=== PATIENT | male | born 1965 | race Caucasian/White ===

== ENCOUNTER 2018-12-06 15:15 | Inpatient (IN) | payer MEDICARE, MEDICAID ==
[~2018-12-06] VITALS: Ht 172.7 cm; Wt 63.5 kg
[~2018-12-06 15:15] MED LIST: CLON1TAB12 PO; OLAN10TA3 PO; TRAZ-251 PO; ZYDS20 PO
[2018-12-06] MEDS ORDERED: OLANZAPINE 5MG TABLET ODT PO ONE (16:45)
[2018-12-06 17:01] LABS: BASOPHILS % 0.4 % (0.0-2.0); EOSINOPHILS % 0.9 % (0.0-5.0); HEMATOCRIT. 37.6 % (42.0-52.0); HEMOGLOBIN. 12.8 g/dL (14.0-18.0); LYMPHOCYTES % 13.5 % (20.0-50.0); MEAN CORPUSCULAR VOLUME 91.2 fL (80.0-94.0); MEAN PLATELET VOLUME 7.4 fl (7.4-10.4); MONOCYTES % 6.9 % (2.0-8.0); NEUTROPHILS % 78.3 % (40.0-76.0); PLATELET 268 x1000/uL (130-400); RED BLOOD CELL COUNT 4.12 mill/uL (4.7-6.1); RED CELL DISTRIBUTION WIDTH 15.9 % (11.6-14.6)
[2018-12-06 17:06] LABS: CHLORIDE 107 mEq/L (98-107)
[2018-12-06 17:09] LABS: ETHANOL BLOOD < 10 mg/dL
[2018-12-06 18:37] LABS: *AMPHETAMINES SCREEN URINE NEGATIVE (NEGATIVE); *BARBITURATES SCREEN URINE NEGATIVE (NEGATIVE)
[2018-12-06 18:38] LABS: *BENZODIAZEPINES SCREEN URINE NEGATIVE (NEGATIVE); *COCAINE SCREEN URINE NEGATIVE (NEGATIVE); CANNABINOID URINE SCREEN NEGATIVE (NEGATIVE); METHADONE URINE SCREEN NEGATIVE (NEGATIVE); OPIATES URINE SCREEN NEGATIVE (NEGATIVE); PHENCYCLIDINE URINE SCREEN NEGATIVE (NEGATIVE)
[2018-12-06] MEDS ORDERED: LORAZEPAM 2MG/ML CPJ IM ONE (21:30)
[2018-12-07] MEDS ORDERED: HYDROCODONE/ACETAMINOPHEN 5/325MG TABLET PO NR (08:45)
[2018-12-07] MEDS: OLANZAPINE 5MG TABLET ODT PO NR ×2 (08:49→08:59)
[2018-12-07] MEDS ORDERED: LORAZEPAM 2MG/ML CPJ IM STA (15:26)
[2018-12-07] MEDS ORDERED: OLANZAPINE 10 MG/VIAL IM STA (15:26)
[2018-12-07] MEDS ORDERED: TRANEXAMIC ACID 1,000 MG/10 ML TP ONE (16:45)
[2018-12-07] MEDS ORDERED: KETAMINE HCL 50 MG/ML 10ML ONE (17:02)
[2018-12-07] MEDS ORDERED: LIDOCAINE HCL 1% 20ML VIAL (Pyxis) INJ ONE (17:08)
[2018-12-07] MEDS ORDERED: PROPOFOL 10MG/ML 100ML 100 ML IV ONE ×2 (17:17→18:00)
[2018-12-07] MEDS ORDERED: SUCCINYLCHOLINE CHLORIDE 200MG/10ML IV ONE (17:30)
[2018-12-07] MEDS ORDERED: KETAMINE HCL 50 MG/ML 10ML IV ONE (17:30)
[2018-12-07 17:41] LABS: BG BASE EXCESS 1.2 mmol/L (-2.0-2.0); BG CARBOXYHEMOGLOBIN 0.4 % (0.5-1.5); BG DEOXYHEMOGLOBIN 0.3 % (0.0-5.0); BG FRACTION INSPIRED OXYGEN 100; BG HCO3 ACT 26.7 mmol/L (22.0-26.0); BG METHEMOGLOBIN 0.3 % (0.0-1.5); BG OXYGEN SATURATION 99.7 % (92.0-98.5); BG PCO2 45.3 mmHg (35.0-45.0); BG PH 7.388 (7.350-7.450); BG PO2 583.1 mmHg (75.0-100.0); BG SAMPLE SITE RIGHT BRACHIAL; BG TIDAL VOLUME(mL) 500 mL; BG VENT MODE VENT - A/C; BG VENT RATE 12 set
[2018-12-07 19:47] LABS: HEMATOCRIT. 36.2 % (42.0-52.0); HEMOGLOBIN. 12.2 g/dL (14.0-18.0); MEAN CORPUSCULAR VOLUME 91.6 fL (80.0-94.0); MEAN PLATELET VOLUME 7.4 fl (7.4-10.4); PLATELET 255 x1000/uL (130-400); RED BLOOD CELL COUNT 3.95 mill/uL (4.7-6.1); RED CELL DISTRIBUTION WIDTH 16.2 % (11.6-14.6)
[2018-12-07 19:51] LABS: CHLORIDE 110 mEq/L (98-107)
[2018-12-07 19:56] LABS: INR 1.1; PARTIAL THROMBOPLASTIN TIME 28.2 sec (23.4-31.0); PROTHROMBIN TIME 10.9 sec (9.6-11.0)
[2018-12-07 20:01] LABS: PLATELET ESTIMATE NORMAL
[2018-12-08] VITALS (114 sets, daily range): BP systolic 79–204; BP diastolic 45–129
[2018-12-08] MEDS ORDERED: ONDANSETRON HCL 4MG/2ML INJ IV PRN (00:30)
[2018-12-08] MEDS ORDERED: LORAZEPAM 2MG/ML CPJ IV PRN (00:30)
[2018-12-08 00:43] LABS: BG BASE EXCESS -0.7 mmol/L (-2.0-2.0); BG CARBOXYHEMOGLOBIN 0.3 % (0.5-1.5); BG DEOXYHEMOGLOBIN 0.7 % (0.0-5.0); BG FRACTION INSPIRED OXYGEN 50; BG HCO3 ACT 25.6 mmol/L (22.0-26.0); BG METHEMOGLOBIN 0.3 % (0.0-1.5); BG OXYGEN SATURATION 99.3 % (92.0-98.5); BG OXYHEMOGLOBIN 98.7 % (94.0-97.0); BG PCO2 48.5 mmHg (35.0-45.0); BG PO2 220.4 mmHg (75.0-100.0); BG SAMPLE SITE RIGHT BRACHIAL; BG TIDAL VOLUME(mL) 500 mL; BG TOTAL HEMOGLOBIN 13.1 g/dL (12.0-18.0); BG VENT MODE VENT - A/C; BG VENT RATE 12 set
[2018-12-08] MEDS: DEXT 5%/0.45% NACL 1000ML 1,000 ML IV SCH ×2 (00:48→14:27)
[2018-12-08] MEDS ORDERED: PROPOFOL 10MG/ML 100ML 100 ML IV PRN (01:15)
[2018-12-08] MEDS ORDERED: IPRATROPIUM/ALBUTEROL 0.5-3(2.5)MG/3ML NEB HHN PRN (01:15)
[2018-12-08] MEDS: IPRATROPIUM/ALBUTEROL 0.5-3(2.5)MG/3ML NEB HHN SCH ×5 (02:00→19:46)
[2018-12-08] MEDS: NOREPINEPHRINE 16 MG in DEXT 5% WATER 234 ML IV PRN ×2 (06:10→20:46)
[2018-12-08 07:55] LABS: BG BASE EXCESS -0.4 mmol/L (-2.0-2.0); BG DEOXYHEMOGLOBIN 0.3 % (0.0-5.0); BG FRACTION INSPIRED OXYGEN 50; BG HCO3 ACT 24.8 mmol/L (22.0-26.0); BG METHEMOGLOBIN 0.3 % (0.0-1.5); BG OXYGEN SATURATION 99.7 % (92.0-98.5); BG OXYHEMOGLOBIN 98.4 % (94.0-97.0); BG PCO2 42.5 mmHg (35.0-45.0); BG PH 7.384 (7.350-7.450); BG PO2 260.3 mmHg (75.0-100.0); BG SAMPLE SITE RIGHT BRACHIAL; BG TIDAL VOLUME(mL) 500 mL; BG TOTAL HEMOGLOBIN 14.6 g/dL (12.0-18.0); BG VENT MODE VENT - A/C; BG VENT RATE 14 set
[2018-12-08] MEDS: FENTANYL CITRATE/PF 500 MCG in SODIUM CHLORIDE 0.9% 40 ML IV PRN ×3 (08:44→21:23)
[2018-12-08] MEDS ORDERED: SUCCINYLCHOLINE CHLORIDE 200MG/10ML IV ONE (08:45)
[2018-12-08] MEDS: MIDAZOLAM HCL 50 MG in DEXTROSE 5% WATER 40 ML IV PRN ×3 (08:45→21:00)
[2018-12-08] MEDS ORDERED: ETOMIDATE 2MG/ML 10ML VIAL IV ONE (08:45)
[2018-12-08] MEDS ORDERED: LORAZEPAM 2MG/ML CPJ IV NR (09:00)
[2018-12-08] MEDS ORDERED: LEVETIRACETAM 500 MG in SODIUM CHLORIDE 0.9% 100 ML IV NR (10:00)
[2018-12-08 10:13] LABS: HEMATOCRIT. 34.9 % (42.0-52.0); HEMOGLOBIN. 11.8 g/dL (14.0-18.0); MEAN CORPUSCULAR HEMOGLOBIN 31.2 pg (28.0-32.0); MEAN CORPUSCULAR VOLUME 92.2 fL (80.0-94.0); MEAN PLATELET VOLUME 7.5 fl (7.4-10.4); PLATELET 230 x1000/uL (130-400); RED BLOOD CELL COUNT 3.78 mill/uL (4.7-6.1); RED CELL DISTRIBUTION WIDTH 16.1 % (11.6-14.6)
[2018-12-08 10:25] LABS: CHLORIDE 109 mEq/L (98-107)
[2018-12-08 10:31] LABS: PHOSPHORUS 2.6 mg/dL (2.5-4.9)
[2018-12-08 11:30] LABS: PLATELET ESTIMATE NORMAL
[2018-12-08] MEDS: PANTOPRAZOLE SODIUM 40 MG/VIAL IV SCH (12:00)
[2018-12-08] MEDS: CLONAZEPAM 0.5MG TABLET PO SCH ×3 (12:15→19:26)
[2018-12-08] MEDS ORDERED: LIDOCAINE HCL 1% 20ML VIAL (Pyxis) INJ ONE (12:55)
[2018-12-08] MEDS ORDERED: POTASSIUM CHLORIDE INJ 40 MEQ in DEXT 5% WATER 250 ML IV NR (13:00)
[2018-12-08] MEDS ORDERED: HYDROMORPHONE HCL/PF 2MG/ML CPJ IV PRN (16:45)
[2018-12-08] MEDS: ACETAMINOPHEN 325MG TABLET PO PRN (19:27)
[2018-12-08] MEDS: LORAZEPAM 2MG/ML CPJ IV PRN (19:42)
[2018-12-08] MEDS: PIPERACILLIN/TAZ 3.375G PREMIX 50 ML IV SCH (20:47)
[2018-12-08] MEDS: OLANZAPINE 10MG TABLET PO SCH (20:48)
[2018-12-08 21:31] LABS: CLARITY URINE CLEAR (CLEAR); COLOR URINE YELLOW (YELLOW); KETONES URINE NEGATIVE (NEGATIVE); LEUKOCYTE ESTERASE URINE TRACE (NEGATIVE); NITRITE URINE NEGATIVE (NEGATIVE); OCCULT BLOOD URINE 3+ (NEGATIVE); PROTEIN URINE NEGATIVE (NEGATIVE)
[2018-12-09] VITALS (94 sets, daily range): BP systolic 84–144; BP diastolic 38–94
[2018-12-09] MEDS: DEXT 5%/0.45% NACL 1000ML 1,000 ML IV SCH ×2 (01:31→14:18)
[2018-12-09] MEDS: PIPERACILLIN/TAZ 3.375G PREMIX 50 ML IV SCH ×4 (01:48→19:51)
[2018-12-09] MEDS: IPRATROPIUM/ALBUTEROL 0.5-3(2.5)MG/3ML NEB HHN SCH ×4 (01:54→20:39)
[2018-12-09] MEDS: MIDAZOLAM HCL 50 MG in DEXTROSE 5% WATER 40 ML IV PRN ×4 (02:03→16:39)
[2018-12-09] MEDS: FENTANYL CITRATE/PF 500 MCG in SODIUM CHLORIDE 0.9% 40 ML IV PRN ×6 (02:25→22:49)
[2018-12-09 05:31] LABS: HEMATOCRIT. 35.9 % (42.0-52.0); HEMOGLOBIN. 12.3 g/dL (14.0-18.0); MEAN CORPUSCULAR HEMOGLOBIN 31.8 pg (28.0-32.0); MEAN PLATELET VOLUME 7.9 fl (7.4-10.4); PLATELET 221 x1000/uL (130-400); RED BLOOD CELL COUNT 3.87 mill/uL (4.7-6.1); RED CELL DISTRIBUTION WIDTH 16.2 % (11.6-14.6)
[2018-12-09 05:36] LABS: CHLORIDE 105 mEq/L (98-107)
[2018-12-09 07:11] LABS: PLATELET ESTIMATE NORMAL
[2018-12-09] MEDS: LORAZEPAM 2MG/ML CPJ IV PRN ×2 (07:45→12:02)
[2018-12-09 07:57] LABS: BG BASE EXCESS 2.9 mmol/L (-2.0-2.0); BG CARBOXYHEMOGLOBIN 0.6 % (0.5-1.5); BG DEOXYHEMOGLOBIN 2.9 % (0.0-5.0); BG FRACTION INSPIRED OXYGEN 35; BG HCO3 ACT 28.5 mmol/L (22.0-26.0); BG METHEMOGLOBIN 0.3 % (0.0-1.5); BG OXYGEN SATURATION 97.1 % (92.0-98.5); BG OXYHEMOGLOBIN 96.2 % (94.0-97.0); BG PCO2 48.1 mmHg (35.0-45.0); BG PH 7.391 (7.350-7.450); BG PO2 96.3 mmHg (75.0-100.0); BG SAMPLE SITE RIGHT RADIAL; BG TIDAL VOLUME(mL) 500 mL; BG TOTAL HEMOGLOBIN 11.7 g/dL (12.0-18.0); BG VENT MODE VENT - A/C; BG VENT RATE 14 set
[2018-12-09] MEDS: CLONAZEPAM 0.5MG TABLET PO SCH (08:42)
[2018-12-09] MEDS: PANTOPRAZOLE SODIUM 40 MG/VIAL IV SCH (08:42)
[2018-12-09] MEDS: HALOPERIDOL 5MG TABLET PO PRN (13:30)
[2018-12-09] MEDS: ACETAMINOPHEN 325MG TABLET PO PRN (16:53)
[2018-12-09] MEDS: CLONAZEPAM 1MG TABLET PO SCH ×2 (18:04→23:00)
[2018-12-09] MEDS: PROPOFOL 10MG/ML 100ML 100 ML IV PRN (19:17)
[2018-12-09] MEDS ORDERED: GENTAMICIN 120MG PREMIX 100 ML IV NR (20:30)
[2018-12-09] MEDS ORDERED: GENTAMICIN SULFATE 140 MG in SODIUM CHLORIDE 0.9% 100 ML IV SCH (20:30)
[2018-12-09] MEDS: OLANZAPINE 10MG TABLET PO SCH (20:33)
[2018-12-10] VITALS (98 sets, daily range): BP systolic 84–130; BP diastolic 46–78
[2018-12-10] MEDS: PROPOFOL 10MG/ML 100ML 100 ML IV PRN ×4 (00:28→23:40)
[2018-12-10] MEDS: PIPERACILLIN/TAZ 3.375G PREMIX 50 ML IV SCH ×4 (01:24→19:28)
[2018-12-10] MEDS: IPRATROPIUM/ALBUTEROL 0.5-3(2.5)MG/3ML NEB HHN SCH ×4 (02:31→20:12)
[2018-12-10] MEDS: FENTANYL CITRATE/PF 500 MCG in SODIUM CHLORIDE 0.9% 40 ML IV PRN ×3 (03:53→14:55)
[2018-12-10] MEDS: DEXT 5%/0.45% NACL 1000ML 1,000 ML IV SCH ×2 (04:05→17:43)
[2018-12-10] MEDS: CLONAZEPAM 1MG TABLET PO SCH ×4 (05:08→23:03)
[2018-12-10 05:56] LABS: HEMATOCRIT. 31.1 % (42.0-52.0); HEMOGLOBIN. 10.5 g/dL (14.0-18.0); MEAN CORPUSCULAR VOLUME 91.9 fL (80.0-94.0); MEAN PLATELET VOLUME 8.2 fl (7.4-10.4); PLATELET 192 x1000/uL (130-400); RED BLOOD CELL COUNT 3.38 mill/uL (4.7-6.1)
[2018-12-10 06:01] LABS: CHLORIDE 103 mEq/L (98-107)
[2018-12-10 07:58] LABS: BG BASE EXCESS 1.5 mmol/L (-2.0-2.0); BG CARBOXYHEMOGLOBIN 0.2 % (0.5-1.5); BG DEOXYHEMOGLOBIN 2.3 % (0.0-5.0); BG FRACTION INSPIRED OXYGEN 35; BG HCO3 ACT 26.3 mmol/L (22.0-26.0); BG METHEMOGLOBIN 0.1 % (0.0-1.5); BG OXYGEN SATURATION 97.7 % (92.0-98.5); BG OXYHEMOGLOBIN 97.4 % (94.0-97.0); BG PCO2 42.6 mmHg (35.0-45.0); BG PH 7.409 (7.350-7.450); BG PO2 103.7 mmHg (75.0-100.0); BG SAMPLE SITE LEFT BRACHIAL; BG TIDAL VOLUME(mL) 500 mL; BG VENT MODE VENT - A/C; BG VENT RATE 14 set
[2018-12-10] MEDS: GENTAMICIN 120MG PREMIX 100 ML IV SCH ×2 (08:23→20:00)
[2018-12-10] MEDS: PANTOPRAZOLE SODIUM 40 MG/VIAL IV SCH (08:23)
[2018-12-10 09:07] LABS: PHOSPHORUS 2.5 mg/dL (2.5-4.9)
[2018-12-10] MEDS ORDERED: POTASSIUM CHLORIDE INJ 40 MEQ in DEXT 5% WATER 250 ML IV NR (09:30)
[2018-12-10 10:05] LABS: PLATELET ESTIMATE NORMAL
[2018-12-10] MEDS: HALOPERIDOL 5MG TABLET PO PRN (15:12)
[2018-12-10] MEDS: ACETAMINOPHEN 325MG TABLET PO PRN (15:23)
[2018-12-10] MEDS: OLANZAPINE 10MG TABLET PO SCH (20:05)
[2018-12-10] MEDS: FENTANYL CITRATE/PF 1,000 MCG in SODIUM CHLORIDE 0.9% 80 ML IV PRN ×2 (20:27→20:30)
[2018-12-11] VITALS (90 sets, daily range): BP systolic 90–144; BP diastolic 46–89
[2018-12-11] MEDS: PIPERACILLIN/TAZ 3.375G PREMIX 50 ML IV SCH ×2 (01:00→08:40)
[2018-12-11] MEDS: IPRATROPIUM/ALBUTEROL 0.5-3(2.5)MG/3ML NEB HHN SCH ×4 (01:57→20:42)
[2018-12-11] MEDS: CLONAZEPAM 1MG TABLET PO SCH ×3 (05:07→17:37)
[2018-12-11] MEDS: PROPOFOL 10MG/ML 100ML 100 ML IV PRN ×3 (05:07→17:19)
[2018-12-11] MEDS: DEXT 5%/0.45% NACL 1000ML 1,000 ML IV SCH ×2 (06:41→20:51)
[2018-12-11 07:27] LABS: BASOPHILS % 0.3 % (0.0-2.0); EOSINOPHILS % 3.2 % (0.0-5.0); HEMATOCRIT. 26.9 % (42.0-52.0); HEMOGLOBIN. 9.2 g/dL (14.0-18.0); LYMPHOCYTES % 7.7 % (20.0-50.0); MEAN CORPUSCULAR HEMOGLOBIN 31.4 pg (28.0-32.0); MEAN CORPUSCULAR VOLUME 92.1 fL (80.0-94.0); MEAN PLATELET VOLUME 7.9 fl (7.4-10.4); MONOCYTES % 5.6 % (2.0-8.0); NEUTROPHILS % 83.2 % (40.0-76.0); PLATELET 194 x1000/uL (130-400); RED BLOOD CELL COUNT 2.92 mill/uL (4.7-6.1); RED CELL DISTRIBUTION WIDTH 16.1 % (11.6-14.6)
[2018-12-11 07:38] LABS: CHLORIDE 106 mEq/L (98-107)
[2018-12-11 07:42] LABS: BG BASE EXCESS 4.1 mmol/L (-2.0-2.0); BG CARBOXYHEMOGLOBIN 0.3 % (0.5-1.5); BG DEOXYHEMOGLOBIN 1.3 % (0.0-5.0); BG FRACTION INSPIRED OXYGEN 35; BG HCO3 ACT 29.4 mmol/L (22.0-26.0); BG METHEMOGLOBIN 0.1 % (0.0-1.5); BG OXYGEN SATURATION 98.7 % (92.0-98.5); BG OXYHEMOGLOBIN 98.3 % (94.0-97.0); BG PCO2 47.6 mmHg (35.0-45.0); BG PH 7.409 (7.350-7.450); BG PO2 148.2 mmHg (75.0-100.0); BG SAMPLE SITE LEFT BRACHIAL; BG TIDAL VOLUME(mL) 500 mL; BG VENT MODE VENT - A/C; BG VENT RATE 14 set
[2018-12-11] MEDS: GENTAMICIN 120MG PREMIX 100 ML IV SCH (08:00)
[2018-12-11 08:10] LABS: GENTAMICIN TROUGH 0.4 ug/mL (<2.0)
[2018-12-11] MEDS: PANTOPRAZOLE SODIUM 40 MG/VIAL IV SCH (08:40)
[2018-12-11] MEDS: FENTANYL CITRATE/PF 1,000 MCG in SODIUM CHLORIDE 0.9% 80 ML IV PRN ×2 (10:12→19:21)
[2018-12-11] MEDS ORDERED: POTASSIUM CHLORIDE INJ 40 MEQ in DEXT 5% WATER 250 ML IV SCH (12:00)
[2018-12-11] MEDS: HALOPERIDOL 5MG TABLET PO PRN (14:22)
[2018-12-11] MEDS: CEFTRIAXONE 1 G PREMIX 50 ML IV SCH (15:09)
[2018-12-11] MEDS ORDERED: GENTAMICIN 120MG PREMIX 100 ML IV SCH (16:00)
[2018-12-11] MEDS: ACETAMINOPHEN 325MG TABLET PO PRN (17:18)
[2018-12-11] MEDS: MORPHINE SULFATE 2 MG/ML CPJ (NOT FOR IM USE) IV PRN (19:17)
[2018-12-11] MEDS: OLANZAPINE 10MG TABLET PO SCH (20:51)
[2018-12-12] VITALS (83 sets, daily range): BP systolic 99–146; BP diastolic 49–87
[2018-12-12] MEDS: PROPOFOL 10MG/ML 100ML 100 ML IV PRN ×4 (00:12→19:02)
[2018-12-12] MEDS: CLONAZEPAM 1MG TABLET PO SCH ×5 (00:20→23:45)
[2018-12-12] MEDS: IPRATROPIUM/ALBUTEROL 0.5-3(2.5)MG/3ML NEB HHN SCH ×4 (02:32→20:18)
[2018-12-12 05:35] LABS: BASOPHILS % 0.2 % (0.0-2.0); EOSINOPHILS % 4.2 % (0.0-5.0); HEMATOCRIT. 30.4 % (42.0-52.0); HEMOGLOBIN. 10.4 g/dL (14.0-18.0); LYMPHOCYTES % 9.2 % (20.0-50.0); MEAN CORPUSCULAR HEMOGLOBIN 31.5 pg (28.0-32.0); MEAN CORPUSCULAR VOLUME 92.4 fL (80.0-94.0); MEAN PLATELET VOLUME 7.7 fl (7.4-10.4); MONOCYTES % 6.9 % (2.0-8.0); NEUTROPHILS % 79.5 % (40.0-76.0); PLATELET 253 x1000/uL (130-400); RED BLOOD CELL COUNT 3.29 mill/uL (4.7-6.1); RED CELL DISTRIBUTION WIDTH 15.8 % (11.6-14.6)
[2018-12-12 05:48] LABS: CHLORIDE 106 mEq/L (98-107)
[2018-12-12 06:07] LABS: LIDOCAINE None Detected ug/mL (1.5-5.0)
[2018-12-12] MEDS: FENTANYL CITRATE/PF 1,000 MCG in SODIUM CHLORIDE 0.9% 80 ML IV PRN ×2 (06:38→18:23)
[2018-12-12 08:31] LABS: BG BASE EXCESS 5.1 mmol/L (-2.0-2.0); BG CARBOXYHEMOGLOBIN 0.3 % (0.5-1.5); BG FRACTION INSPIRED OXYGEN 35; BG HCO3 ACT 30.4 mmol/L (22.0-26.0); BG METHEMOGLOBIN 0.2 % (0.0-1.5); BG OXYHEMOGLOBIN 97.5 % (94.0-97.0); BG PCO2 48.7 mmHg (35.0-45.0); BG PH 7.413 (7.350-7.450); BG PO2 117.3 mmHg (75.0-100.0); BG SAMPLE SITE RIGHT RADIAL; BG TIDAL VOLUME(mL) 500 mL; BG TOTAL HEMOGLOBIN 9.8 g/dL (12.0-18.0); BG VENT MODE VENT - A/C; BG VENT RATE 14 set
[2018-12-12] MEDS: CEFTRIAXONE 1 G PREMIX 50 ML IV SCH (08:51)
[2018-12-12] MEDS: PANTOPRAZOLE SODIUM 40 MG/VIAL IV SCH (08:51)
[2018-12-12] MEDS: MORPHINE SULFATE 2 MG/ML CPJ (NOT FOR IM USE) IV PRN ×2 (09:14→15:28)
[2018-12-12] MEDS ORDERED: BISACODYL 10MG SUPP PR PRN (10:45)
[2018-12-12] MEDS: METOCLOPRAMIDE HCL 10MG/2ML VIAL IV SCH ×3 (11:25→23:45)
[2018-12-12] MEDS: DOCUSATE SODIUM SUGAR FREE 100MG/10ML UDC NG SCH (11:25)
[2018-12-12] MEDS: DEXT 5%/0.45% NACL 1000ML 1,000 ML IV SCH ×2 (11:26→23:45)
[2018-12-12] MEDS: ENOXAPARIN 40MG/0.4ML SYR SUBCUT SCH (11:28)
[2018-12-12] MEDS ORDERED: LACTULOSE 20G/30ML UDC PO NR (11:30)
[2018-12-12] MEDS: HALOPERIDOL 5MG TABLET PO PRN (16:43)
[2018-12-12] MEDS: RISPERIDONE 1MG TABLET PO SCH (20:35)
[2018-12-12] MEDS: OLANZAPINE 10MG TABLET PO SCH (20:35)
[2018-12-13] VITALS (93 sets, daily range): BP systolic 98–159; BP diastolic 54–108
[2018-12-13] MEDS: PROPOFOL 10MG/ML 100ML 100 ML IV PRN ×5 (01:54→23:15)
[2018-12-13] MEDS: IPRATROPIUM/ALBUTEROL 0.5-3(2.5)MG/3ML NEB HHN SCH ×4 (02:30→20:32)
[2018-12-13] MEDS: METOCLOPRAMIDE HCL 10MG/2ML VIAL IV SCH (05:08)
[2018-12-13] MEDS: CLONAZEPAM 1MG TABLET PO SCH ×3 (05:08→18:03)
[2018-12-13] MEDS: FENTANYL CITRATE/PF 1,000 MCG in SODIUM CHLORIDE 0.9% 80 ML IV PRN ×2 (05:49→18:07)
[2018-12-13] MEDS: CEFTRIAXONE 1 G PREMIX 50 ML IV SCH (07:59)
[2018-12-13] MEDS: RISPERIDONE 1MG TABLET PO SCH ×2 (07:59→21:36)
[2018-12-13] MEDS: DOCUSATE SODIUM SUGAR FREE 100MG/10ML UDC NG SCH (07:59)
[2018-12-13] MEDS: PANTOPRAZOLE SODIUM 40 MG/VIAL IV SCH (07:59)
[2018-12-13 08:16] LABS: HEMATOCRIT. 34.4 % (42.0-52.0); HEMOGLOBIN. 11.4 g/dL (14.0-18.0); MEAN CORPUSCULAR HEMOGLOBIN 31.1 pg (28.0-32.0); MEAN CORPUSCULAR VOLUME 93.4 fL (80.0-94.0); RED BLOOD CELL COUNT 3.68 mill/uL (4.7-6.1); RED CELL DISTRIBUTION WIDTH 16.3 % (11.6-14.6)
[2018-12-13 08:28] LABS: CHLORIDE 106 mEq/L (98-107)
[2018-12-13 08:40] LABS: BG BASE EXCESS 11.2 mmol/L (-2.0-2.0); BG CARBOXYHEMOGLOBIN 0.5 % (0.5-1.5); BG DEOXYHEMOGLOBIN 1.7 % (0.0-5.0); BG FRACTION INSPIRED OXYGEN 35; BG HCO3 ACT 37.5 mmol/L (22.0-26.0); BG METHEMOGLOBIN 0.5 % (0.0-1.5); BG OXYGEN SATURATION 98.3 % (92.0-98.5); BG OXYHEMOGLOBIN 97.3 % (94.0-97.0); BG PCO2 60.3 mmHg (35.0-45.0); BG PH 7.411 (7.350-7.450); BG PO2 120.2 mmHg (75.0-100.0); BG SAMPLE SITE RIGHT RADIAL; BG TIDAL VOLUME(mL) 500 mL; BG TOTAL HEMOGLOBIN 9.3 g/dL (12.0-18.0); BG VENT MODE VENT - A/C; BG VENT RATE 14 set
[2018-12-13] MEDS ORDERED: DEXTROSE 50% WATER 50ML SYRINGE IV ONE (09:07)
[2018-12-13] MEDS: ACETAMINOPHEN 325MG TABLET PO PRN (09:21)
[2018-12-13 09:24] LABS: BG BASE EXCESS 4.9 mmol/L (-2.0-2.0); BG CARBOXYHEMOGLOBIN 0.1 % (0.5-1.5); BG DEOXYHEMOGLOBIN 6.8 % (0.0-5.0); BG HCO3 ACT 30.2 mmol/L (22.0-26.0); BG METHEMOGLOBIN 0.4 % (0.0-1.5); BG OXYGEN SATURATION 93.2 % (92.0-98.5); BG OXYHEMOGLOBIN 92.7 % (94.0-97.0); BG PCO2 47.6 mmHg (35.0-45.0); BG SAMPLE SITE RIGHT BRACHIAL; BG TIDAL VOLUME(mL) 500 mL; BG TOTAL HEMOGLOBIN 11.1 g/dL (12.0-18.0); BG VENT MODE VENT - A/C; BG VENT RATE 14 set
[2018-12-13] MEDS ORDERED: DEXTROSE 50% WATER 50ML SYRINGE IV PRN ×2 (09:30→18:00)
[2018-12-13 10:41] LABS: PLATELET 276 x1000/uL (130-400); PLATELET ESTIMATE NORMAL
[2018-12-13] MEDS: ENOXAPARIN 40MG/0.4ML SYR SUBCUT SCH (11:30)
[2018-12-13 13:06] LABS: CHLORIDE 106 mEq/L (98-107)
[2018-12-13] MEDS: LACTULOSE 20G/30ML UDC PO SCH ×2 (13:18→21:36)
[2018-12-13] MEDS: INSULIN LISPRO 100 UNITS/ML SUBCUT SCH ×3 (13:20→23:55)
[2018-12-13] MEDS: DEXT 5%/0.45% NACL 1000ML 1,000 ML IV SCH (13:22)
[2018-12-13] MEDS: BLOOD SUGAR DIAGNOSTIC STRIP TEST SCH ×4 (13:22→23:55)
[2018-12-13] MEDS: MORPHINE SULFATE 2 MG/ML CPJ (NOT FOR IM USE) IV PRN ×2 (13:24→18:25)
[2018-12-13] MEDS ORDERED: INSULIN LISPRO 100 UNITS/ML SUBCUT SCH (18:30)
[2018-12-13] MEDS: OLANZAPINE 10MG TABLET PO SCH (21:36)
[2018-12-14] VITALS (95 sets, daily range): BP systolic 101–193; BP diastolic 50–104
[2018-12-14] MEDS: CLONAZEPAM 1MG TABLET PO SCH ×4 (00:03→17:34)
[2018-12-14] MEDS: IPRATROPIUM/ALBUTEROL 0.5-3(2.5)MG/3ML NEB HHN SCH ×4 (01:20→20:23)
[2018-12-14] MEDS: DEXT 5%/0.45% NACL 1000ML 1,000 ML IV SCH ×2 (02:40→17:43)
[2018-12-14] MEDS: PROPOFOL 10MG/ML 100ML 100 ML IV PRN (05:12)
[2018-12-14 05:30] LABS: BASOPHILS % 0.5 % (0.0-2.0); EOSINOPHILS % 5.3 % (0.0-5.0); HEMATOCRIT. 33.3 % (42.0-52.0); HEMOGLOBIN. 10.9 g/dL (14.0-18.0); LYMPHOCYTES % 13.3 % (20.0-50.0); MEAN CORPUSCULAR HEMOGLOBIN 30.7 pg (28.0-32.0); MEAN CORPUSCULAR VOLUME 93.9 fL (80.0-94.0); MEAN PLATELET VOLUME 6.7 fl (7.4-10.4); MONOCYTES % 10.8 % (2.0-8.0); NEUTROPHILS % 70.1 % (40.0-76.0); PLATELET 293 x1000/uL (130-400); RED BLOOD CELL COUNT 3.55 mill/uL (4.7-6.1); RED CELL DISTRIBUTION WIDTH 15.8 % (11.6-14.6)
[2018-12-14] MEDS: BLOOD SUGAR DIAGNOSTIC STRIP TEST SCH ×3 (05:32→17:35)
[2018-12-14] MEDS: INSULIN LISPRO 100 UNITS/ML SUBCUT SCH ×3 (05:32→17:34)
[2018-12-14 05:33] LABS: CHLORIDE 105 mEq/L (98-107)
[2018-12-14] MEDS: LACTULOSE 20G/30ML UDC PO SCH ×2 (06:00→14:04)
[2018-12-14] MEDS: FENTANYL CITRATE/PF 1,000 MCG in SODIUM CHLORIDE 0.9% 80 ML IV PRN ×2 (06:14→18:27)
[2018-12-14] MEDS ORDERED: METHYLPREDNISOLONE SOD SUCC 125 MG/2 ML VIAL IV SCH (08:30)
[2018-12-14] MEDS ORDERED: SORBITOL 70% SOLN 30ML PO SCH (08:30)
[2018-12-14] MEDS: PANTOPRAZOLE SODIUM 40 MG/VIAL IV SCH (09:00)
[2018-12-14] MEDS: RISPERIDONE 1MG TABLET PO SCH ×2 (09:08→20:44)
[2018-12-14] MEDS: DOCUSATE SODIUM SUGAR FREE 100MG/10ML UDC NG SCH (09:08)
[2018-12-14] MEDS: CEFTRIAXONE 1 G PREMIX 50 ML IV SCH (09:08)
[2018-12-14] MEDS ORDERED: SORBITOL 70% SOLN 30ML PO NR (09:15)
[2018-12-14 09:17] LABS: BG BASE EXCESS 2.9 mmol/L (-2.0-2.0); BG CARBOXYHEMOGLOBIN 0.3 % (0.5-1.5); BG DEOXYHEMOGLOBIN 1.2 % (0.0-5.0); BG FRACTION INSPIRED OXYGEN 50; BG HCO3 ACT 28.2 mmol/L (22.0-26.0); BG METHEMOGLOBIN 0.6 % (0.0-1.5); BG OXYGEN SATURATION 98.8 % (92.0-98.5); BG OXYHEMOGLOBIN 97.9 % (94.0-97.0); BG PCO2 46.3 mmHg (35.0-45.0); BG PH 7.403 (7.350-7.450); BG PO2 154.5 mmHg (75.0-100.0); BG SAMPLE SITE RIGHT RADIAL; BG TIDAL VOLUME(mL) 500 mL; BG TOTAL HEMOGLOBIN 11.5 g/dL (12.0-18.0); BG VENT MODE VENT - A/C; BG VENT RATE 12 set
[2018-12-14] MEDS: LORAZEPAM 2MG/ML CPJ IV PRN ×3 (10:03→21:34)
[2018-12-14] MEDS ORDERED: MORPHINE SULFATE 2 MG/ML CPJ (NOT FOR IM USE) IV ONE (10:18)
[2018-12-14] MEDS ORDERED: HALOPERIDOL LACTATE 5MG/ML VIAL IM NR (10:30)
[2018-12-14] MEDS ORDERED: LORAZEPAM 2MG/ML CPJ IV NR (10:30)
[2018-12-14] MEDS ORDERED: MORPHINE SULFATE 2 MG/ML CPJ (NOT FOR IM USE) IV NR (10:30)
[2018-12-14] MEDS ORDERED: VECURONIUM BROMIDE 10 MG/VIAL IV ONE (10:37)
[2018-12-14] MEDS ORDERED: ETOMIDATE 2MG/ML 10ML VIAL IV ONE (10:37)
[2018-12-14] MEDS ORDERED: SODIUM CHLORIDE 0.9% 10ML VIAL ONE (10:37)
[2018-12-14] MEDS ORDERED: PROPOFOL 10MG/ML 100ML 100 ML IV PRN (10:45)
[2018-12-14] MEDS ORDERED: CLONIDINE 0.1MG TABLET PO PRN (11:00)
[2018-12-14] MEDS: MIDAZOLAM HCL 100 MG in DEXT 5% WATER 80 ML IV PRN (13:17)
[2018-12-14] MEDS: ENOXAPARIN 40MG/0.4ML SYR SUBCUT SCH (13:36)
[2018-12-14] MEDS: HALOPERIDOL LACTATE 5MG/ML VIAL IM PRN (20:21)
[2018-12-14] MEDS: OLANZAPINE 10MG TABLET PO SCH (20:44)
[2018-12-15] VITALS (96 sets, daily range): BP systolic 100–168; BP diastolic 55–104
[2018-12-15] MEDS: BLOOD SUGAR DIAGNOSTIC STRIP TEST SCH ×5 (00:04→23:19)
[2018-12-15] MEDS: MIDAZOLAM HCL 100 MG in DEXT 5% WATER 80 ML IV PRN ×2 (00:49→12:08)
[2018-12-15] MEDS: IPRATROPIUM/ALBUTEROL 0.5-3(2.5)MG/3ML NEB HHN SCH ×4 (01:47→20:14)
[2018-12-15] MEDS: HALOPERIDOL LACTATE 5MG/ML VIAL IM PRN ×2 (04:24→13:11)
[2018-12-15 05:32] LABS: CHLORIDE 105 mEq/L (98-107)
[2018-12-15] MEDS: FENTANYL CITRATE/PF 1,000 MCG in SODIUM CHLORIDE 0.9% 80 ML IV PRN ×2 (05:36→14:51)
[2018-12-15 05:39] LABS: BASOPHILS % 0.2 % (0.0-2.0); EOSINOPHILS % 0.6 % (0.0-5.0); HEMATOCRIT. 30.7 % (42.0-52.0); HEMOGLOBIN. 10.3 g/dL (14.0-18.0); LYMPHOCYTES % 13.9 % (20.0-50.0); MEAN CORPUSCULAR HEMOGLOBIN 30.8 pg (28.0-32.0); MEAN CORPUSCULAR VOLUME 92.1 fL (80.0-94.0); MEAN PLATELET VOLUME 6.5 fl (7.4-10.4); MONOCYTES % 11.9 % (2.0-8.0); NEUTROPHILS % 73.4 % (40.0-76.0); PLATELET 356 x1000/uL (130-400); RED BLOOD CELL COUNT 3.34 mill/uL (4.7-6.1); RED CELL DISTRIBUTION WIDTH 15.4 % (11.6-14.6)
[2018-12-15] MEDS: INSULIN LISPRO 100 UNITS/ML SUBCUT SCH ×5 (05:45→23:19)
[2018-12-15] MEDS: DEXT 5%/0.45% NACL 1000ML 1,000 ML IV SCH ×2 (05:46→18:49)
[2018-12-15] MEDS: RISPERIDONE 1MG TABLET PO SCH ×3 (08:00→17:07)
[2018-12-15] MEDS: DOCUSATE SODIUM SUGAR FREE 100MG/10ML UDC NG SCH (08:00)
[2018-12-15] MEDS: PANTOPRAZOLE SODIUM 40 MG/VIAL IV SCH (08:00)
[2018-12-15 09:20] LABS: BG BASE EXCESS 0.8 mmol/L (-2.0-2.0); BG CARBOXYHEMOGLOBIN 0.3 % (0.5-1.5); BG DEOXYHEMOGLOBIN 1.2 % (0.0-5.0); BG FRACTION INSPIRED OXYGEN 50; BG HCO3 ACT 25.7 mmol/L (22.0-26.0); BG METHEMOGLOBIN 0.8 % (0.0-1.5); BG OXYGEN SATURATION 98.8 % (92.0-98.5); BG OXYHEMOGLOBIN 97.7 % (94.0-97.0); BG PCO2 42.6 mmHg (35.0-45.0); BG PH 7.399 (7.350-7.450); BG SAMPLE SITE RIGHT RADIAL; BG TIDAL VOLUME(mL) 500 mL; BG TOTAL HEMOGLOBIN 12.4 g/dL (12.0-18.0); BG VENT MODE VENT - A/C; BG VENT RATE 12 set
[2018-12-15] MEDS: CEFTRIAXONE 1 G PREMIX 50 ML IV SCH (09:23)
[2018-12-15] MEDS: ENOXAPARIN 40MG/0.4ML SYR SUBCUT SCH (12:08)
[2018-12-15] MEDS ORDERED: FENTANYL CITRATE/PF 1,000 MCG in SODIUM CHLORIDE 0.9% 80 ML IV PRN (16:15)
[2018-12-15] MEDS: PROPOFOL 10MG/ML 100ML 100 ML IV PRN ×2 (17:43→20:29)
[2018-12-15] MEDS: OLANZAPINE 10MG TABLET PO SCH (20:06)
[2018-12-16] VITALS (97 sets, daily range): BP systolic 91–165; BP diastolic 48–89
[2018-12-16] MEDS: PROPOFOL 10MG/ML 100ML 100 ML IV PRN ×7 (00:32→20:07)
[2018-12-16] MEDS: HALOPERIDOL LACTATE 5MG/ML VIAL IM PRN ×2 (00:32→12:09)
[2018-12-16] MEDS: FENTANYL CITRATE/PF 1,000 MCG in SODIUM CHLORIDE 0.9% 80 ML IV PRN ×3 (01:10→23:10)
[2018-12-16] MEDS: MIDAZOLAM HCL 100 MG in DEXT 5% WATER 80 ML IV PRN ×2 (01:32→20:01)
[2018-12-16] MEDS: IPRATROPIUM/ALBUTEROL 0.5-3(2.5)MG/3ML NEB HHN SCH ×4 (01:55→20:32)
[2018-12-16] MEDS: INSULIN LISPRO 100 UNITS/ML SUBCUT SCH ×4 (05:11→23:05)
[2018-12-16] MEDS: BLOOD SUGAR DIAGNOSTIC STRIP TEST SCH ×4 (05:11→23:05)
[2018-12-16 06:24] LABS: BASOPHILS % 0.6 % (0.0-2.0); EOSINOPHILS % 3.1 % (0.0-5.0); HEMOGLOBIN. 10.8 g/dL (14.0-18.0); LYMPHOCYTES % 13.2 % (20.0-50.0); MEAN CORPUSCULAR HEMOGLOBIN 31.1 pg (28.0-32.0); MEAN CORPUSCULAR VOLUME 91.8 fL (80.0-94.0); MEAN PLATELET VOLUME 6.7 fl (7.4-10.4); MONOCYTES % 8.5 % (2.0-8.0); NEUTROPHILS % 74.6 % (40.0-76.0); PLATELET 374 x1000/uL (130-400); RED BLOOD CELL COUNT 3.48 mill/uL (4.7-6.1); RED CELL DISTRIBUTION WIDTH 15.4 % (11.6-14.6)
[2018-12-16] MEDS: DEXT 5%/0.45% NACL 1000ML 1,000 ML IV SCH ×2 (06:27→20:13)
[2018-12-16 06:33] LABS: CHLORIDE 107 mEq/L (98-107)
[2018-12-16] MEDS: PANTOPRAZOLE SODIUM 40 MG/VIAL IV SCH (08:06)
[2018-12-16] MEDS: CEFTRIAXONE 1 G PREMIX 50 ML IV SCH (08:06)
[2018-12-16] MEDS: RISPERIDONE 1MG TABLET PO SCH ×2 (08:06→17:41)
[2018-12-16] MEDS: DOCUSATE SODIUM SUGAR FREE 100MG/10ML UDC NG SCH (08:06)
[2018-12-16 09:16] LABS: BG BASE EXCESS 5.8 mmol/L (-2.0-2.0); BG DEOXYHEMOGLOBIN 2.1 % (0.0-5.0); BG FRACTION INSPIRED OXYGEN 40; BG HCO3 ACT 31.1 mmol/L (22.0-26.0); BG METHEMOGLOBIN 0.4 % (0.0-1.5); BG OXYGEN SATURATION 97.9 % (92.0-98.5); BG OXYHEMOGLOBIN 97.5 % (94.0-97.0); BG PCO2 48.9 mmHg (35.0-45.0); BG PH 7.421 (7.350-7.450); BG PO2 113.6 mmHg (75.0-100.0); BG SAMPLE SITE RIGHT RADIAL; BG TIDAL VOLUME(mL) 500 mL; BG TOTAL HEMOGLOBIN 10.4 g/dL (12.0-18.0); BG VENT MODE VENT - A/C; BG VENT RATE 12 set
[2018-12-16] MEDS: ENOXAPARIN 40MG/0.4ML SYR SUBCUT SCH (11:23)
[2018-12-16] MEDS: CLONAZEPAM 1MG TABLET PO SCH ×2 (11:23→20:15)
[2018-12-16] MEDS ORDERED: POTASSIUM CHLORIDE INJ 40 MEQ in DEXT 5% WATER 250 ML IV NR (12:00)
[2018-12-16] MEDS: OLANZAPINE 10MG TABLET PO SCH (20:15)
[2018-12-17] VITALS (77 sets, daily range): BP systolic 85–126; BP diastolic 49–76
[2018-12-17] MEDS: PROPOFOL 10MG/ML 100ML 100 ML IV PRN ×7 (00:16→22:18)
[2018-12-17] MEDS: IPRATROPIUM/ALBUTEROL 0.5-3(2.5)MG/3ML NEB HHN SCH ×4 (02:04→20:18)
[2018-12-17] MEDS: MIDAZOLAM HCL 100 MG in DEXT 5% WATER 80 ML IV PRN ×2 (03:04→21:14)
[2018-12-17] MEDS: INSULIN LISPRO 100 UNITS/ML SUBCUT SCH ×4 (05:17→23:27)
[2018-12-17] MEDS: BLOOD SUGAR DIAGNOSTIC STRIP TEST SCH ×4 (05:17→23:26)
[2018-12-17 06:15] LABS: CHLORIDE 105 mEq/L (98-107)
[2018-12-17 06:27] LABS: BASOPHILS % 0.5 % (0.0-2.0); EOSINOPHILS % 3.7 % (0.0-5.0); HEMATOCRIT. 30.1 % (42.0-52.0); HEMOGLOBIN. 10.3 g/dL (14.0-18.0); LYMPHOCYTES % 11.1 % (20.0-50.0); MEAN CORPUSCULAR HEMOGLOBIN 31.4 pg (28.0-32.0); MEAN CORPUSCULAR VOLUME 91.6 fL (80.0-94.0); MEAN PLATELET VOLUME 6.8 fl (7.4-10.4); MONOCYTES % 3.2 % (2.0-8.0); NEUTROPHILS % 81.5 % (40.0-76.0); PLATELET 394 x1000/uL (130-400); RED BLOOD CELL COUNT 3.29 mill/uL (4.7-6.1); RED CELL DISTRIBUTION WIDTH 15.5 % (11.6-14.6)
[2018-12-17] MEDS: RISPERIDONE 1MG TABLET PO SCH ×2 (08:36→17:16)
[2018-12-17] MEDS: PANTOPRAZOLE SODIUM 40 MG/VIAL IV SCH (08:36)
[2018-12-17] MEDS: CLONAZEPAM 1MG TABLET PO SCH ×2 (08:36→20:21)
[2018-12-17] MEDS: DOCUSATE SODIUM SUGAR FREE 100MG/10ML UDC NG SCH (08:36)
[2018-12-17] MEDS: CEFTRIAXONE 1 G PREMIX 50 ML IV SCH (08:37)
[2018-12-17] MEDS: DEXT 5%/0.45% NACL 1000ML 1,000 ML IV SCH ×3 (08:37→21:45)
[2018-12-17 09:20] LABS: BG BASE EXCESS 1.3 mmol/L (-2.0-2.0); BG CARBOXYHEMOGLOBIN 0.3 % (0.5-1.5); BG DEOXYHEMOGLOBIN 1.1 % (0.0-5.0); BG FRACTION INSPIRED OXYGEN 40; BG HCO3 ACT 26.2 mmol/L (22.0-26.0); BG METHEMOGLOBIN 0.3 % (0.0-1.5); BG OXYGEN SATURATION 98.9 % (92.0-98.5); BG OXYHEMOGLOBIN 98.3 % (94.0-97.0); BG PH 7.403 (7.350-7.450); BG PO2 157.6 mmHg (75.0-100.0); BG SAMPLE SITE RIGHT RADIAL; BG TIDAL VOLUME(mL) 500 mL; BG TOTAL HEMOGLOBIN 10.5 g/dL (12.0-18.0); BG VENT MODE VENT - A/C; BG VENT RATE 12 set
[2018-12-17] MEDS: ENOXAPARIN 40MG/0.4ML SYR SUBCUT SCH (11:31)
[2018-12-17] MEDS: FENTANYL CITRATE/PF 1,000 MCG in SODIUM CHLORIDE 0.9% 80 ML IV PRN (13:30)
[2018-12-17] MEDS: HALOPERIDOL LACTATE 5MG/ML VIAL IM PRN ×2 (14:29→23:19)
[2018-12-17] MEDS: LORAZEPAM 2MG/ML CPJ IV PRN ×2 (14:43→18:42)
[2018-12-17] MEDS: OLANZAPINE 10MG TABLET PO SCH (20:21)
[2018-12-17] MEDS: ACETAMINOPHEN 325MG TABLET PO PRN (20:21)
[2018-12-18] VITALS (72 sets, daily range): BP systolic 99–140; BP diastolic 56–88
[2018-12-18] MEDS: FENTANYL CITRATE/PF 1,000 MCG in SODIUM CHLORIDE 0.9% 80 ML IV PRN ×3 (00:10→23:17)
[2018-12-18] MEDS: PROPOFOL 10MG/ML 100ML 100 ML IV PRN ×6 (01:50→21:46)
[2018-12-18] MEDS: IPRATROPIUM/ALBUTEROL 0.5-3(2.5)MG/3ML NEB HHN SCH ×4 (03:24→21:10)
[2018-12-18] MEDS: INSULIN LISPRO 100 UNITS/ML SUBCUT SCH ×3 (05:12→18:00)
[2018-12-18] MEDS: BLOOD SUGAR DIAGNOSTIC STRIP TEST SCH ×3 (05:12→18:00)
[2018-12-18] MEDS: LORAZEPAM 2MG/ML CPJ IV PRN ×4 (06:28→20:05)
[2018-12-18 06:55] LABS: HEMATOCRIT. 32.6 % (42.0-52.0); HEMOGLOBIN. 10.9 g/dL (14.0-18.0); MEAN CORPUSCULAR HEMOGLOBIN 30.9 pg (28.0-32.0); MEAN CORPUSCULAR VOLUME 92.3 fL (80.0-94.0); MEAN PLATELET VOLUME 7.1 fl (7.4-10.4); PLATELET 442 x1000/uL (130-400); RED BLOOD CELL COUNT 3.53 mill/uL (4.7-6.1); RED CELL DISTRIBUTION WIDTH 15.5 % (11.6-14.6)
[2018-12-18 07:03] LABS: CHLORIDE 104 mEq/L (98-107)
[2018-12-18 07:16] LABS: PLATELET ESTIMATE INCREASED
[2018-12-18] MEDS: ACETAMINOPHEN 325MG TABLET PO PRN ×2 (07:30→23:06)
[2018-12-18] MEDS: HALOPERIDOL LACTATE 5MG/ML VIAL IM PRN ×3 (07:30→23:48)
[2018-12-18] MEDS: RISPERIDONE 1MG TABLET PO SCH ×2 (08:38→16:55)
[2018-12-18] MEDS: CLONAZEPAM 1MG TABLET PO SCH ×2 (08:38→21:13)
[2018-12-18] MEDS: CEFTRIAXONE 1 G PREMIX 50 ML IV SCH (08:38)
[2018-12-18] MEDS: DOCUSATE SODIUM SUGAR FREE 100MG/10ML UDC NG SCH (08:38)
[2018-12-18] MEDS: PANTOPRAZOLE SODIUM 40 MG/VIAL IV SCH (08:38)
[2018-12-18 09:16] LABS: BG BASE EXCESS 2.7 mmol/L (-2.0-2.0); BG CARBOXYHEMOGLOBIN 0.3 % (0.5-1.5); BG DEOXYHEMOGLOBIN 2.7 % (0.0-5.0); BG FRACTION INSPIRED OXYGEN 35; BG HCO3 ACT 27.5 mmol/L (22.0-26.0); BG METHEMOGLOBIN 0.3 % (0.0-1.5); BG OXYGEN SATURATION 97.3 % (92.0-98.5); BG OXYHEMOGLOBIN 96.7 % (94.0-97.0); BG PCO2 43.1 mmHg (35.0-45.0); BG PH 7.422 (7.350-7.450); BG PO2 99.3 mmHg (75.0-100.0); BG SAMPLE SITE RIGHT BRACHIAL; BG TIDAL VOLUME(mL) 500 mL; BG VENT MODE VENT - A/C; BG VENT RATE 12 set
[2018-12-18] MEDS: DEXT 5%/0.45% NACL 1000ML 1,000 ML IV SCH ×3 (10:16→23:53)
[2018-12-18] MEDS: ENOXAPARIN 40MG/0.4ML SYR SUBCUT SCH (13:03)
[2018-12-18] MEDS ORDERED: VANCOMYCIN 1250MG in DEXTROSE 5% WATER 250ML IV NR (14:30)
[2018-12-18] MEDS: CEFTAZIDIME PENTAHYDRATE 1 G in DEXTROSE 5% WATER 50 ML IV SCH ×2 (14:58→21:50)
[2018-12-18] MEDS: VANCOMYCIN 1 G PREMIX 200 ML IV SCH (20:09)
[2018-12-18] MEDS: OLANZAPINE 10MG TABLET PO SCH (21:13)
[2018-12-19] VITALS (93 sets, daily range): BP systolic 92–143; BP diastolic 55–89
[2018-12-19] MEDS: BLOOD SUGAR DIAGNOSTIC STRIP TEST SCH ×4 (00:01→17:34)
[2018-12-19] MEDS: LORAZEPAM 2MG/ML CPJ IV PRN ×5 (00:10→21:26)
[2018-12-19] MEDS: PROPOFOL 10MG/ML 100ML 100 ML IV PRN ×5 (00:40→22:53)
[2018-12-19] MEDS: IPRATROPIUM/ALBUTEROL 0.5-3(2.5)MG/3ML NEB HHN SCH ×4 (02:25→20:34)
[2018-12-19] MEDS: DEXT 5%/0.45% NACL 1000ML 1,000 ML IV SCH ×2 (03:40→12:59)
[2018-12-19] MEDS: VANCOMYCIN 1 G PREMIX 200 ML IV SCH (03:52)
[2018-12-19] MEDS: INSULIN LISPRO 100 UNITS/ML SUBCUT SCH ×4 (06:00→17:34)
[2018-12-19] MEDS: CEFTAZIDIME PENTAHYDRATE 1 G in DEXTROSE 5% WATER 50 ML IV SCH ×3 (06:03→21:09)
[2018-12-19 06:56] LABS: HEMATOCRIT 33.4 % (42.0-52.0); MEAN CORPUSCULAR HEMOGLOBIN 30.6 pg (28.0-32.0); MEAN CORPUSCULAR VOLUME 92.9 fL (80.0-94.0); PLATELET 448 x1000/uL (130-400); RED BLOOD CELL COUNT 3.59 mill/uL (4.7-6.1); RED CELL DISTRIBUTION WIDTH 15.4 % (11.6-14.6)
[2018-12-19 07:39] LABS: CHLORIDE 102 mEq/L (98-107)
[2018-12-19 07:51] LABS: CREATINE KINASE 220 IU/L (39-308)
[2018-12-19 08:14] LABS: BG BASE EXCESS 4.5 mmol/L (-2.0-2.0); BG CARBOXYHEMOGLOBIN 0.5 % (0.5-1.5); BG DEOXYHEMOGLOBIN 2.9 % (0.0-5.0); BG FRACTION INSPIRED OXYGEN 35; BG HCO3 ACT 29.5 mmol/L (22.0-26.0); BG METHEMOGLOBIN 0.3 % (0.0-1.5); BG OXYGEN SATURATION 97.1 % (92.0-98.5); BG OXYHEMOGLOBIN 96.3 % (94.0-97.0); BG PCO2 45.3 mmHg (35.0-45.0); BG PH 7.431 (7.350-7.450); BG PO2 91.1 mmHg (75.0-100.0); BG SAMPLE SITE LEFT BRACHIAL; BG TIDAL VOLUME(mL) 500 mL; BG TOTAL HEMOGLOBIN 11.5 g/dL (12.0-18.0); BG VENT MODE VENT - A/C; BG VENT RATE 12 set
[2018-12-19] MEDS: HALOPERIDOL LACTATE 5MG/ML VIAL IM PRN ×2 (08:31→17:22)
[2018-12-19] MEDS: PANTOPRAZOLE SODIUM 40 MG/VIAL IV SCH ×2 (08:31→20:29)
[2018-12-19] MEDS: CLONAZEPAM 1MG TABLET PO SCH ×2 (08:32→20:29)
[2018-12-19] MEDS: RISPERIDONE 1MG TABLET PO SCH ×2 (08:32→17:23)
[2018-12-19] MEDS: ACETAMINOPHEN 325MG TABLET PO PRN (08:54)
[2018-12-19] MEDS: DOCUSATE SODIUM SUGAR FREE 100MG/10ML UDC NG SCH (10:15)
[2018-12-19 11:23] LABS: INR 1.1; PARTIAL THROMBOPLASTIN TIME 33.4 sec (23.4-31.0); PROTHROMBIN TIME 11.6 sec (9.6-11.0)
[2018-12-19] MEDS ORDERED: ACETAMINOPHEN 650MG/20.3ML UDC PO PRN (15:00)
[2018-12-19] MEDS: VANCOMYCIN 1500MG in DEXTROSE 5% WATER 250ML IV SCH ×2 (16:09→21:57)
[2018-12-19] MEDS: FENTANYL CITRATE/PF 1,000 MCG in SODIUM CHLORIDE 0.9% 80 ML IV PRN (17:37)
[2018-12-19] MEDS ORDERED: MIDAZOLAM HCL 2 MG/2 ML VIAL ONE (18:27)
[2018-12-19] MEDS ORDERED: FENTANYL CITRATE/PF 50MCG/ML 2ML VIAL ONE (18:27)
[2018-12-19] MEDS: OLANZAPINE 10MG TABLET PO SCH (20:29)
[2018-12-20] VITALS (62 sets, daily range): BP systolic 91–141; BP diastolic 47–104
[2018-12-20] MEDS: BLOOD SUGAR DIAGNOSTIC STRIP TEST SCH ×4 (00:01→17:26)
[2018-12-20] MEDS: LORAZEPAM 2MG/ML CPJ IV PRN ×10 (01:00→22:55)
[2018-12-20] MEDS: HALOPERIDOL LACTATE 5MG/ML VIAL IM PRN ×3 (01:25→17:39)
[2018-12-20] MEDS: IPRATROPIUM/ALBUTEROL 0.5-3(2.5)MG/3ML NEB HHN SCH ×4 (01:52→19:55)
[2018-12-20] MEDS: PROPOFOL 10MG/ML 100ML 100 ML IV PRN (03:11)
[2018-12-20] MEDS: DEXT 5%/0.45% NACL 1000ML 1,000 ML IV SCH ×3 (03:37→16:56)
[2018-12-20] MEDS: CEFTAZIDIME PENTAHYDRATE 1 G in DEXTROSE 5% WATER 50 ML IV SCH ×3 (05:18→21:49)
[2018-12-20 05:31] LABS: HEMATOCRIT. 31.5 % (42.0-52.0); HEMOGLOBIN. 10.4 g/dL (14.0-18.0); MEAN CORPUSCULAR HEMOGLOBIN 30.7 pg (28.0-32.0); PLATELET 457 x1000/uL (130-400); RED BLOOD CELL COUNT 3.38 mill/uL (4.7-6.1); RED CELL DISTRIBUTION WIDTH 15.2 % (11.6-14.6)
[2018-12-20 05:39] LABS: INR 1.1; PARTIAL THROMBOPLASTIN TIME 31.6 sec (23.4-31.0); PROTHROMBIN TIME 11.2 sec (9.6-11.0)
[2018-12-20 05:49] LABS: CHLORIDE 104 mEq/L (98-107)
[2018-12-20] MEDS: INSULIN LISPRO 100 UNITS/ML SUBCUT SCH ×4 (06:00→17:26)
[2018-12-20] MEDS: VANCOMYCIN 1500MG in DEXTROSE 5% WATER 250ML IV SCH ×3 (06:22→22:27)
[2018-12-20] MEDS: RISPERIDONE 1MG TABLET PO SCH ×2 (08:41→17:38)
[2018-12-20] MEDS: DOCUSATE SODIUM SUGAR FREE 100MG/10ML UDC NG SCH (08:42)
[2018-12-20] MEDS ORDERED: BACTERIOSTATIC SODIUM CHLORIDE 0.9% 30ML VIAL IJ ONE (08:42)
[2018-12-20] MEDS: CLONAZEPAM 1MG TABLET PO SCH ×2 (08:42→20:21)
[2018-12-20 08:43] LABS: BG BASE EXCESS 1.9 mmol/L (-2.0-2.0); BG CARBOXYHEMOGLOBIN 0.3 % (0.5-1.5); BG DEOXYHEMOGLOBIN 1.3 % (0.0-5.0); BG FRACTION INSPIRED OXYGEN 35; BG METHEMOGLOBIN 0.3 % (0.0-1.5); BG OXYGEN SATURATION 98.7 % (92.0-98.5); BG OXYHEMOGLOBIN 98.1 % (94.0-97.0); BG PCO2 38.3 mmHg (35.0-45.0); BG PH 7.449 (7.350-7.450); BG PO2 141.4 mmHg (75.0-100.0); BG SAMPLE SITE LEFT BRACHIAL; BG TIDAL VOLUME(mL) 500 mL; BG TOTAL HEMOGLOBIN 10.7 g/dL (12.0-18.0); BG VENT MODE VENT - A/C; BG VENT RATE 12 set
[2018-12-20] MEDS: PANTOPRAZOLE SODIUM 40 MG/VIAL IV SCH ×2 (09:42→20:20)
[2018-12-20] MEDS ORDERED: VECURONIUM BROMIDE 10 MG/VIAL IV ONE (10:09)
[2018-12-20 10:29] LABS: HEPATITIS B SURFACE ANTIGEN NEGATIVE
[2018-12-20 10:58] LABS: HEPATITIS A AB IGM NEGATIVE (NEGATIVE)
[2018-12-20] MEDS: MORPHINE SULFATE 4 MG/ML CPJ (NOT FOR IM USE) IV PRN ×4 (11:03→21:04)
[2018-12-20] MEDS ORDERED: DIPHENHYDRAMINE 50MG/ML VIAL ONE (12:56)
[2018-12-20] MEDS ORDERED: MIDAZOLAM HCL 5 MG/5 ML VIAL ONE (12:56)
[2018-12-20] MEDS ORDERED: FENTANYL CITRATE/PF 50MCG/ML 2ML VIAL ONE (12:56)
[2018-12-20] MEDS ORDERED: MIDAZOLAM HCL 5 MG/5 ML VIAL IV PRN (13:23)
[2018-12-20] MEDS ORDERED: FENTANYL CITRATE/PF 50MCG/ML 2ML VIAL IV PRN (13:24)
[2018-12-20] MEDS ORDERED: DIPHENHYDRAMINE 50MG/ML VIAL IV PRN (13:29)
[2018-12-20 17:17] LABS: PLATELET ESTIMATE INCREASED
[2018-12-20] MEDS: OLANZAPINE 10MG TABLET PO SCH (20:20)
[2018-12-21] VITALS (25 sets, daily range): BP systolic 85–140; BP diastolic 44–106
[2018-12-21] MEDS: BLOOD SUGAR DIAGNOSTIC STRIP TEST SCH ×4 (00:47→18:43)
[2018-12-21] MEDS: LORAZEPAM 2MG/ML CPJ IV PRN ×9 (00:59→21:52)
[2018-12-21] MEDS: MORPHINE SULFATE 4 MG/ML CPJ (NOT FOR IM USE) IV PRN ×8 (01:38→21:53)
[2018-12-21] MEDS: IPRATROPIUM/ALBUTEROL 0.5-3(2.5)MG/3ML NEB HHN SCH ×4 (02:06→20:37)
[2018-12-21] MEDS: HALOPERIDOL LACTATE 5MG/ML VIAL IM PRN ×3 (02:09→18:38)
[2018-12-21] MEDS: CEFTAZIDIME PENTAHYDRATE 1 G in DEXTROSE 5% WATER 50 ML IV SCH (05:21)
[2018-12-21] MEDS: DEXT 5%/0.45% NACL 1000ML 1,000 ML IV SCH ×2 (05:22→08:57)
[2018-12-21] MEDS: INSULIN LISPRO 100 UNITS/ML SUBCUT SCH ×4 (05:42→18:00)
[2018-12-21] MEDS: VANCOMYCIN 1500MG in DEXTROSE 5% WATER 250ML IV SCH (06:17)
[2018-12-21 06:23] LABS: BASOPHILS % 0.6 % (0.0-2.0); EOSINOPHILS % 1.4 % (0.0-5.0); HEMATOCRIT. 27.9 % (42.0-52.0); HEMOGLOBIN. 9.4 g/dL (14.0-18.0); LYMPHOCYTES % 9.7 % (20.0-50.0); MEAN CORPUSCULAR VOLUME 92.4 fL (80.0-94.0); MONOCYTES % 7.2 % (2.0-8.0); NEUTROPHILS % 81.1 % (40.0-76.0); PLATELET 479 x1000/uL (130-400); RED BLOOD CELL COUNT 3.02 mill/uL (4.7-6.1); RED CELL DISTRIBUTION WIDTH 14.8 % (11.6-14.6)
[2018-12-21 06:48] LABS: CHLORIDE 106 mEq/L (98-107)
[2018-12-21] MEDS: RISPERIDONE 1MG TABLET PO SCH ×2 (08:57→18:38)
[2018-12-21] MEDS: DOCUSATE SODIUM SUGAR FREE 100MG/10ML UDC NG SCH (08:57)
[2018-12-21] MEDS: CLONAZEPAM 1MG TABLET PO SCH (08:57)
[2018-12-21] MEDS: PANTOPRAZOLE SODIUM 40 MG/VIAL IV SCH (08:57)
[2018-12-21] MEDS: CLONAZEPAM 1MG TABLET PEG SCH ×4 (15:09→21:53)
[2018-12-21] MEDS ORDERED: POTASSIUM CHLORIDE INJ 40 MEQ in DEXT 5% WATER 250 ML IV NR (15:30)
[2018-12-21] MEDS ORDERED: CLONAZEPAM 1MG TABLET PO SCH (21:00)
[2018-12-21] MEDS: SULFAMETHOXAZOLE/TRIMETHOPRIM 800/160MG TABLET PO SCH (21:11)
[2018-12-21] MEDS: TRAZODONE HCL 50MG TABLET PO SCH (21:11)
[2018-12-21] MEDS: OLANZAPINE 10MG TABLET PO SCH (21:11)
[2018-12-22] VITALS (18 sets, daily range): BP systolic 107–143; BP diastolic 52–82
[2018-12-22] MEDS: MORPHINE SULFATE 4 MG/ML CPJ (NOT FOR IM USE) IV PRN ×7 (00:13→18:32)
[2018-12-22] MEDS: LORAZEPAM 2MG/ML CPJ IV PRN ×8 (00:14→20:19)
[2018-12-22] MEDS: DEXT 5%/0.45% NACL 1000ML 1,000 ML IV SCH ×2 (00:14→12:25)
[2018-12-22] MEDS: BLOOD SUGAR DIAGNOSTIC STRIP TEST SCH ×5 (00:24→23:39)
[2018-12-22] MEDS: IPRATROPIUM/ALBUTEROL 0.5-3(2.5)MG/3ML NEB HHN SCH ×4 (02:18→20:25)
[2018-12-22] MEDS: INSULIN LISPRO 100 UNITS/ML SUBCUT SCH ×5 (05:23→23:39)
[2018-12-22 07:09] LABS: BASOPHILS % 0.7 % (0.0-2.0); EOSINOPHILS % 2.1 % (0.0-5.0); HEMATOCRIT. 26.1 % (42.0-52.0); HEMOGLOBIN. 9.1 g/dL (14.0-18.0); LYMPHOCYTES % 11.4 % (20.0-50.0); MEAN CORPUSCULAR HEMOGLOBIN 32.1 pg (28.0-32.0); MEAN CORPUSCULAR VOLUME 91.7 fL (80.0-94.0); MEAN PLATELET VOLUME 6.8 fl (7.4-10.4); NEUTROPHILS % 76.8 % (40.0-76.0); PLATELET 511 x1000/uL (130-400); RED BLOOD CELL COUNT 2.85 mill/uL (4.7-6.1); RED CELL DISTRIBUTION WIDTH 14.7 % (11.6-14.6)
[2018-12-22 07:22] LABS: CHLORIDE 105 mEq/L (98-107)
[2018-12-22] MEDS: PANTOPRAZOLE SODIUM 40 MG/VIAL IV SCH (08:37)
[2018-12-22] MEDS: SULFAMETHOXAZOLE/TRIMETHOPRIM 800/160MG TABLET PO SCH ×2 (08:37→20:20)
[2018-12-22] MEDS: CLONAZEPAM 1MG TABLET PEG SCH ×4 (08:38→20:43)
[2018-12-22] MEDS: RISPERIDONE 1MG TABLET PO SCH ×2 (08:38→17:36)
[2018-12-22] MEDS ORDERED: CLONAZEPAM 1MG TABLET PO SCH (09:00)
[2018-12-22 09:08] LABS: BG BASE EXCESS 3.1 mmol/L (-2.0-2.0); BG CARBOXYHEMOGLOBIN 0.3 % (0.5-1.5); BG DEOXYHEMOGLOBIN 1.9 % (0.0-5.0); BG FRACTION INSPIRED OXYGEN 35; BG HCO3 ACT 27.3 mmol/L (22.0-26.0); BG METHEMOGLOBIN 0.3 % (0.0-1.5); BG OXYGEN SATURATION 98.1 % (92.0-98.5); BG OXYHEMOGLOBIN 97.5 % (94.0-97.0); BG PCO2 40.4 mmHg (35.0-45.0); BG PH 7.448 (7.350-7.450); BG PO2 121.6 mmHg (75.0-100.0); BG SAMPLE SITE RIGHT BRACHIAL; BG TIDAL VOLUME(mL) 500 mL; BG TOTAL HEMOGLOBIN 10.1 g/dL (12.0-18.0); BG VENT MODE VENT - A/C; BG VENT RATE 12 set
[2018-12-22] MEDS: DOCUSATE SODIUM SUGAR FREE 100MG/10ML UDC NG SCH (09:09)
[2018-12-22] MEDS ORDERED: POTASSIUM CHLORIDE 20MEQ TABLET SR PO NR (12:00)
[2018-12-22] MEDS: HALOPERIDOL LACTATE 5MG/ML VIAL IM PRN (14:13)
[2018-12-22 14:15] LABS: BG BASE EXCESS 0.8 mmol/L (-2.0-2.0); BG CARBOXYHEMOGLOBIN 0.2 % (0.5-1.5); BG DEOXYHEMOGLOBIN 3.1 % (0.0-5.0); BG FRACTION INSPIRED OXYGEN 40; BG HCO3 ACT 25.2 mmol/L (22.0-26.0); BG METHEMOGLOBIN 0.3 % (0.0-1.5); BG OXYGEN SATURATION 96.9 % (92.0-98.5); BG OXYHEMOGLOBIN 96.4 % (94.0-97.0); BG PCO2 39.5 mmHg (35.0-45.0); BG PH 7.423 (7.350-7.450); BG PO2 94.1 mmHg (75.0-100.0); BG PRESSURE SUPPORT 8; BG SAMPLE SITE RIGHT RADIAL; BG TOTAL HEMOGLOBIN 13.8 g/dL (12.0-18.0); BG VENT MODE VENT - CPAP
[2018-12-22] MEDS: OLANZAPINE 10MG TABLET PO SCH (20:19)
[2018-12-22] MEDS: TRAZODONE HCL 50MG TABLET PO SCH (20:19)
[2018-12-23] VITALS (15 sets, daily range): BP systolic 105–151; BP diastolic 36–98
[2018-12-23] MEDS: LORAZEPAM 2MG/ML CPJ IV PRN ×8 (00:13→18:37)
[2018-12-23] MEDS: DEXT 5%/0.45% NACL 1000ML 1,000 ML IV SCH ×2 (01:34→14:11)
[2018-12-23] MEDS: MORPHINE SULFATE 4 MG/ML CPJ (NOT FOR IM USE) IV PRN ×5 (01:38→23:20)
[2018-12-23] MEDS: ACETYLCYSTEINE 100MG/ML 10% VIAL 4ML INH SCH (02:26)
[2018-12-23] MEDS: IPRATROPIUM/ALBUTEROL 0.5-3(2.5)MG/3ML NEB HHN SCH ×4 (02:33→20:11)
[2018-12-23] MEDS: INSULIN LISPRO 100 UNITS/ML SUBCUT SCH ×3 (06:00→18:00)
[2018-12-23] MEDS: BLOOD SUGAR DIAGNOSTIC STRIP TEST SCH ×3 (06:22→18:03)
[2018-12-23] MEDS: PANTOPRAZOLE SODIUM 40 MG/VIAL IV SCH (08:04)
[2018-12-23] MEDS: RISPERIDONE 1MG TABLET PO SCH ×2 (08:04→16:05)
[2018-12-23] MEDS: CLONAZEPAM 1MG TABLET PEG SCH ×4 (08:04→21:00)
[2018-12-23] MEDS: SULFAMETHOXAZOLE/TRIMETHOPRIM 800/160MG TABLET PO SCH ×2 (08:04→21:00)
[2018-12-23] MEDS: DOCUSATE SODIUM SUGAR FREE 100MG/10ML UDC NG SCH (08:04)
[2018-12-23] MEDS: HALOPERIDOL LACTATE 5MG/ML VIAL IM PRN ×2 (11:35→20:44)
[2018-12-23] MEDS: DIPHENHYDRAMINE 50MG/ML VIAL IV SCH (18:11)
[2018-12-23 20:41] LABS: BASOPHILS % 0.7 % (0.0-2.0); EOSINOPHILS % 3.6 % (0.0-5.0); HEMATOCRIT. 28.9 % (42.0-52.0); LYMPHOCYTES % 10.8 % (20.0-50.0); MEAN CORPUSCULAR HEMOGLOBIN 31.5 pg (28.0-32.0); MEAN CORPUSCULAR VOLUME 91.7 fL (80.0-94.0); MEAN PLATELET VOLUME 6.9 fl (7.4-10.4); NEUTROPHILS % 75.9 % (40.0-76.0); PLATELET 572 x1000/uL (130-400); RED BLOOD CELL COUNT 3.16 mill/uL (4.7-6.1); RED CELL DISTRIBUTION WIDTH 14.8 % (11.6-14.6)
[2018-12-23 20:44] LABS: CHLORIDE 107 mEq/L (98-107)
[2018-12-23 20:46] LABS: INR 1.1; PROTHROMBIN TIME 11.6 sec (9.6-11.0)
[2018-12-23] MEDS: TRAZODONE HCL 50MG TABLET PO SCH (21:00)
[2018-12-23] MEDS: OLANZAPINE 10MG TABLET PO SCH (21:00)
[2018-12-24] VITALS (12 sets, daily range): BP systolic 94–178; BP diastolic 46–80
[2018-12-24] MEDS: DIPHENHYDRAMINE 50MG/ML VIAL IV SCH ×5 (01:25→23:29)
[2018-12-24] MEDS: HALOPERIDOL LACTATE 5MG/ML VIAL IM PRN ×5 (01:39→23:50)
[2018-12-24] MEDS: DEXT 5%/0.45% NACL 1000ML 1,000 ML IV SCH ×2 (02:08→17:32)
[2018-12-24] MEDS: IPRATROPIUM/ALBUTEROL 0.5-3(2.5)MG/3ML NEB HHN SCH ×4 (02:26→20:43)
[2018-12-24] MEDS: MORPHINE SULFATE 4 MG/ML CPJ (NOT FOR IM USE) IV PRN (03:38)
[2018-12-24] MEDS: INSULIN LISPRO 100 UNITS/ML SUBCUT SCH ×4 (06:00→17:14)
[2018-12-24] MEDS: BLOOD SUGAR DIAGNOSTIC STRIP TEST SCH ×4 (06:12→17:14)
[2018-12-24 07:20] LABS: BASOPHILS % 0.8 % (0.0-2.0); EOSINOPHILS % 3.6 % (0.0-5.0); HEMATOCRIT. 31.5 % (42.0-52.0); HEMOGLOBIN. 10.5 g/dL (14.0-18.0); LYMPHOCYTES % 10.2 % (20.0-50.0); MEAN CORPUSCULAR HEMOGLOBIN 30.7 pg (28.0-32.0); MEAN CORPUSCULAR VOLUME 92.4 fL (80.0-94.0); MEAN PLATELET VOLUME 7.1 fl (7.4-10.4); MONOCYTES % 8.6 % (2.0-8.0); NEUTROPHILS % 76.8 % (40.0-76.0); PLATELET 647 x1000/uL (130-400); RED BLOOD CELL COUNT 3.41 mill/uL (4.7-6.1); RED CELL DISTRIBUTION WIDTH 15.1 % (11.6-14.6)
[2018-12-24 07:27] LABS: CHLORIDE 106 mEq/L (98-107)
[2018-12-24] MEDS: ACETYLCYSTEINE 100MG/ML 10% VIAL 4ML INH SCH ×2 (08:39→14:10)
[2018-12-24] MEDS: CLONAZEPAM 1MG TABLET PEG SCH ×5 (09:00→21:00)
[2018-12-24] MEDS: RISPERIDONE 1MG TABLET PO SCH ×3 (09:00→17:00)
[2018-12-24] MEDS: SULFAMETHOXAZOLE/TRIMETHOPRIM 800/160MG TABLET PO SCH ×3 (09:00→21:00)
[2018-12-24] MEDS: DOCUSATE SODIUM SUGAR FREE 100MG/10ML UDC NG SCH (09:00)
[2018-12-24] MEDS: ACETAMINOPHEN 325MG TABLET PO PRN (09:37)
[2018-12-24] MEDS: LORAZEPAM 2MG/ML CPJ IV PRN (09:39)
[2018-12-24] MEDS ORDERED: POTASSIUM CHLORIDE INJ 40 MEQ in DEXT 5% WATER 250 ML IV NR (12:00)
[2018-12-24] MEDS: PANTOPRAZOLE SODIUM 40 MG/VIAL IV SCH (17:11)
[2018-12-24] MEDS: TRAZODONE HCL 50MG TABLET PO SCH (21:00)
[2018-12-24] MEDS: OLANZAPINE 10MG TABLET PO SCH (21:00)
[2018-12-24] MEDS: RISPERIDONE 1MG TABLET GT SCH (21:00)
[2018-12-25] VITALS (13 sets, daily range): BP systolic 102–143; BP diastolic 52–85
[2018-12-25] MEDS: BLOOD SUGAR DIAGNOSTIC STRIP TEST SCH ×5 (00:53→23:53)
[2018-12-25] MEDS: MORPHINE SULFATE 4 MG/ML CPJ (NOT FOR IM USE) IV PRN (01:41)
[2018-12-25] MEDS: ACETYLCYSTEINE 100MG/ML 10% VIAL 4ML INH SCH (02:43)
[2018-12-25] MEDS: IPRATROPIUM/ALBUTEROL 0.5-3(2.5)MG/3ML NEB HHN SCH ×4 (02:43→20:43)
[2018-12-25] MEDS: INSULIN LISPRO 100 UNITS/ML SUBCUT SCH ×4 (06:00→17:35)
[2018-12-25] MEDS: HALOPERIDOL LACTATE 5MG/ML VIAL IM PRN ×2 (06:03→20:06)
[2018-12-25] MEDS: DIPHENHYDRAMINE 50MG/ML VIAL IV SCH ×4 (06:03→23:53)
[2018-12-25] MEDS: DEXT 5%/0.45% NACL 1000ML 1,000 ML IV SCH (06:04)
[2018-12-25 06:17] LABS: BASOPHILS % 0.7 % (0.0-2.0); EOSINOPHILS % 2.4 % (0.0-5.0); HEMATOCRIT. 29.4 % (42.0-52.0); HEMOGLOBIN. 10.1 g/dL (14.0-18.0); LYMPHOCYTES % 11.8 % (20.0-50.0); MEAN CORPUSCULAR HEMOGLOBIN 31.4 pg (28.0-32.0); MEAN CORPUSCULAR VOLUME 91.9 fL (80.0-94.0); MONOCYTES % 9.2 % (2.0-8.0); NEUTROPHILS % 75.9 % (40.0-76.0); PLATELET 610 x1000/uL (130-400); RED BLOOD CELL COUNT 3.21 mill/uL (4.7-6.1); RED CELL DISTRIBUTION WIDTH 14.6 % (11.6-14.6)
[2018-12-25 07:34] LABS: CHLORIDE 107 mEq/L (98-107)
[2018-12-25] MEDS: PANTOPRAZOLE SODIUM 40 MG/VIAL IV SCH (08:25)
[2018-12-25] MEDS: CLONAZEPAM 1MG TABLET PEG SCH ×4 (09:00→21:00)
[2018-12-25] MEDS: SULFAMETHOXAZOLE/TRIMETHOPRIM 800/160MG TABLET PO SCH (09:00)
[2018-12-25] MEDS: DOCUSATE SODIUM SUGAR FREE 100MG/10ML UDC NG SCH (09:00)
[2018-12-25] MEDS: RISPERIDONE 1MG TABLET GT SCH ×2 (09:00→21:00)
[2018-12-25] MEDS: OLANZAPINE 10MG TABLET PO SCH (21:00)
[2018-12-25] MEDS: TRAZODONE HCL 50MG TABLET PO SCH (21:00)
[2018-12-25] MEDS: LORAZEPAM 2MG/ML CPJ IV PRN (22:13)
[2018-12-26] VITALS (9 sets, daily range): BP systolic 100–124; BP diastolic 60–82
[2018-12-26] MEDS: LORAZEPAM 2MG/ML CPJ IV PRN ×7 (00:25→21:03)
[2018-12-26] MEDS: HALOPERIDOL LACTATE 5MG/ML VIAL IM PRN ×3 (01:13→15:19)
[2018-12-26] MEDS: IPRATROPIUM/ALBUTEROL 0.5-3(2.5)MG/3ML NEB HHN SCH ×4 (02:05→21:04)
[2018-12-26] MEDS: DIPHENHYDRAMINE 50MG/ML VIAL IV SCH ×3 (05:45→18:00)
[2018-12-26] MEDS: BLOOD SUGAR DIAGNOSTIC STRIP TEST SCH ×3 (05:45→18:52)
[2018-12-26] MEDS: DEXT 5%/0.45% NACL 1000ML 1,000 ML IV SCH ×3 (05:53→22:20)
[2018-12-26] MEDS: INSULIN LISPRO 100 UNITS/ML SUBCUT SCH ×4 (05:54→18:00)
[2018-12-26] MEDS: DOCUSATE SODIUM SUGAR FREE 100MG/10ML UDC NG SCH (07:39)
[2018-12-26] MEDS: CLONAZEPAM 1MG TABLET PEG SCH ×2 (07:40→15:19)
[2018-12-26] MEDS: RISPERIDONE 1MG TABLET GT SCH (07:41)
[2018-12-26] MEDS: PANTOPRAZOLE SODIUM 40 MG/VIAL IV SCH (09:00)
[2018-12-26] MEDS ORDERED: DIATR MEGLU/DIATRIZOATE SOLN 30ML PEG SCH (10:30)
[2018-12-26] MEDS ORDERED: DIATR MEGLU/DIATRIZOATE SOLN 30ML ONE (10:53)
[2018-12-26] MEDS: METOCLOPRAMIDE HCL 10MG/2ML VIAL IV SCH ×2 (15:19→17:04)
[2018-12-26] MEDS: OLANZAPINE 10MG TABLET PO SCH (22:09)
[2018-12-26] MEDS: TRAZODONE HCL 50MG TABLET PO SCH (22:09)
[2018-12-26] MEDS: RISPERIDONE 1MG TABLET PO SCH (22:18)
[2018-12-27] VITALS (18 sets, daily range): BP systolic 107–153; BP diastolic 59–84
[2018-12-27] MEDS: HALOPERIDOL LACTATE 5MG/ML VIAL IM PRN ×3 (00:04→22:43)
[2018-12-27] MEDS: LORAZEPAM 2MG/ML CPJ IV PRN ×4 (00:05→19:54)
[2018-12-27] MEDS: METOCLOPRAMIDE HCL 10MG/2ML VIAL IV SCH ×4 (01:55→17:26)
[2018-12-27] MEDS: DIPHENHYDRAMINE 50MG/ML VIAL IV SCH ×4 (01:55→17:26)
[2018-12-27] MEDS: IPRATROPIUM/ALBUTEROL 0.5-3(2.5)MG/3ML NEB HHN SCH ×4 (02:28→20:04)
[2018-12-27] MEDS: INSULIN LISPRO 100 UNITS/ML SUBCUT SCH ×4 (06:00→17:13)
[2018-12-27] MEDS: BLOOD SUGAR DIAGNOSTIC STRIP TEST SCH ×4 (06:05→17:13)
[2018-12-27] MEDS: DOCUSATE SODIUM SUGAR FREE 100MG/10ML UDC NG SCH (08:54)
[2018-12-27] MEDS: PANTOPRAZOLE SODIUM 40 MG/VIAL IV SCH (08:54)
[2018-12-27] MEDS: RISPERIDONE 1MG TABLET PO SCH ×2 (08:55→20:14)
[2018-12-27] MEDS: OLANZAPINE 10MG TABLET PO SCH (20:13)
[2018-12-27] MEDS: TRAZODONE HCL 50MG TABLET PO SCH (20:14)
[2018-12-28] VITALS (13 sets, daily range): BP systolic 82–166; BP diastolic 53–92
[2018-12-28] MEDS: IPRATROPIUM/ALBUTEROL 0.5-3(2.5)MG/3ML NEB HHN SCH ×2 (02:11→07:50)
[2018-12-28] MEDS: LORAZEPAM 2MG/ML CPJ IV PRN ×5 (03:01→17:00)
[2018-12-28] MEDS: DIPHENHYDRAMINE 50MG/ML VIAL IV SCH ×4 (03:01→17:08)
[2018-12-28] MEDS: INSULIN LISPRO 100 UNITS/ML SUBCUT SCH ×4 (06:00→18:00)
[2018-12-28] MEDS: HALOPERIDOL LACTATE 5MG/ML VIAL IM PRN ×3 (06:02→19:45)
[2018-12-28] MEDS: METOCLOPRAMIDE HCL 10MG/2ML VIAL IV SCH ×4 (06:02→17:08)
[2018-12-28] MEDS: BLOOD SUGAR DIAGNOSTIC STRIP TEST SCH ×4 (06:59→18:00)
[2018-12-28] MEDS: DOCUSATE SODIUM SUGAR FREE 100MG/10ML UDC NG SCH (09:08)
[2018-12-28] MEDS: RISPERIDONE 1MG TABLET PO SCH (09:08)
[2018-12-28] MEDS: PANTOPRAZOLE SODIUM 40 MG/VIAL IV SCH (09:08)
== END 2018-12-28 20:10 | DRG 3 ==
LOC: ER 15:48 → CVICU 12-07 22:38 → EDBEDREQ 12-07 22:42 → EDBEDREQTM 12-07 22:42 → ENRESERV 12-07 22:52 → 5EST 12-21 17:26
PROVIDERS: ADMIT Hospitalist; ATTEND Hospitalist
PROC: 5A1955Z Respiratory Ventilation, Greater than 96 Consecutive Hours (ICD-10-PCS; principal; 2018-12-07)
PROC: 0BH17EZ Insertion of Endotracheal Airway into Trachea, Via Natural or Artificial Opening (ICD-10-PCS; 2018-12-07)
PROC: 0BH17EZ Insertion of Endotracheal Airway into Trachea, Via Natural or Artificial Opening (ICD-10-PCS; 2018-12-08)
PROC: 02HV33Z Insertion of Infusion Device into Superior Vena Cava, Percutaneous Approach (ICD-10-PCS; 2018-12-08)
PROC: B548ZZA Ultrasonography of Superior Vena Cava, Guidance (ICD-10-PCS; 2018-12-08)
PROC: 0B21XEZ Change Endotracheal Airway in Trachea, External Approach (ICD-10-PCS; 2018-12-14)
PROC: 0GBJ0ZZ Excision of Thyroid Gland Isthmus, Open Approach (ICD-10-PCS; 2018-12-19)
PROC: 0B110F4 Bypass Trachea to Cutaneous with Tracheostomy Device, Open Approach (ICD-10-PCS; 2018-12-19)
PROC: 0DH63UZ Insertion of Feeding Device into Stomach, Percutaneous Approach (ICD-10-PCS; 2018-12-20)
PROC: 0DB68ZX Excision of Stomach, Via Natural or Artificial Opening Endoscopic, Diagnostic (ICD-10-PCS; 2018-12-20)
PROC: 0D20XUZ Change Feeding Device in Upper Intestinal Tract, External Approach (ICD-10-PCS; 2018-12-25)
DX: A41.59 Other Gram-negative sepsis (principal); J69.0 Pneumonitis due to inhalation of food and vomit; J96.01 Acute respiratory failure with hypoxia; R45.851 Suicidal ideations; N39.0 Urinary tract infection, site not specified; F20.1 Disorganized schizophrenia; E87.6 Hypokalemia; E87.5 Hyperkalemia; S01.512A Laceration without foreign body of oral cavity, initial encounter; I10 Essential (primary) hypertension; K14.0 Glossitis; K29.70 Gastritis, unspecified, without bleeding; R13.10 Dysphagia, unspecified; T88.4XXA Failed or difficult intubation, initial encounter; F20.9 Schizophrenia, unspecified; Y83.8 Other surgical procedures as the cause of abnormal reaction of the patient, or of later complication, without mention of misadventure at the time of the procedure; D64.9 Anemia, unspecified; Z78.1 Physical restraint status; X50.9XXA Other and unspecified overexertion or strenuous movements or postures, initial encounter; Y93.89 Activity, other specified; Y92.89 Other specified places as the place of occurrence of the external cause; Y99.8 Other external cause status; Z91.5 Personal history of self-harm
CPT/HCPCS: 31500; 36415; 36600; 71045; 74018; 76700; 76937; 80048; 80170; 80176; 80202; 80305; 80307; 80320; 80329; 81003; 82375; 82550; 82805; 82962; 83735; 84100; 84443; 84478; 85027; 86705; 86709; 86803; 86850; 86900; 87070; 87077; 87186; 87340; 88305; 88312; 88313; 93005; 93970; 94003; 94640; 96372; 99291; A6261; C1725; C9113; J0330; J0696; J0713; J1200; J1580; J1630; J1650; J1815; J2060; J2250; J2270; J2405; J2543; J2704; J2765; J2930; J3010; J3370; J3480; J3490; J7042; J7050; J7060; J7608; J7620; Q9963; A4315; G0480

== ENCOUNTER 2021-02-09 12:40 | Emergency (ER) | payer MEDICAID, MEDICARE ==
[~2021-02-09] VITALS: Ht 167.6 cm; Wt 68.0 kg
[2021-02-09 12:43] VITALS: BP 145/85
[2021-02-09] MEDS ORDERED: TRAZ-251 MT (13:43)
[2021-02-09] MEDS ORDERED: OMEP20CA14 MT (13:43)
[2021-02-09] MEDS ORDERED: AMLO5TAB4 MT (13:43)
[2021-02-09 14:11] LABS: CLARITY URINE CLEAR (CLEAR); COLOR URINE YELLOW (YELLOW); KETONES URINE NEGATIVE (NEGATIVE); LEUKOCYTE ESTERASE URINE NEGATIVE (NEGATIVE); NITRITE URINE NEGATIVE (NEGATIVE); OCCULT BLOOD URINE NEGATIVE (NEGATIVE); PROTEIN URINE NEGATIVE (NEGATIVE); SPECIFIC GRAVITY URINE 1.021 (1.005-1.030)
[2021-02-09 14:24] LABS: BASOPHILS % 0.5 % (0.0-2.0); HEMATOCRIT. 38.2 % (42.0-52.0); LYMPHOCYTES % 15.5 % (20.0-50.0); MEAN CORPUSCULAR HEMOGLOBIN 31.6 pg (28.0-32.0); MEAN CORPUSCULAR VOLUME 92.7 fL (80.0-94.0); MEAN PLATELET VOLUME 7.6 fl (7.4-10.4); PLATELET 244 x1000/uL (130-400); RED BLOOD CELL COUNT 4.12 mill/uL (4.7-6.1); RED CELL DISTRIBUTION WIDTH 15.2 % (11.6-14.6)
[2021-02-09 14:27] LABS: CHLORIDE 110 mEq/L (98-107)
[2021-02-09 14:31] LABS: ETHANOL BLOOD < 10 mg/dL
[2021-02-09 14:37] LABS: *AMPHETAMINES SCREEN URINE NEGATIVE (NEGATIVE); *BARBITURATES SCREEN URINE NEGATIVE (NEGATIVE); *BENZODIAZEPINES SCREEN URINE NEGATIVE (NEGATIVE); *COCAINE SCREEN URINE NEGATIVE (NEGATIVE)
[2021-02-09 14:38] LABS: CANNABINOID URINE SCREEN NEGATIVE (NEGATIVE); METHADONE URINE SCREEN NEGATIVE (NEGATIVE); OPIATES URINE SCREEN NEGATIVE (NEGATIVE); PHENCYCLIDINE URINE SCREEN NEGATIVE (NEGATIVE)
== END 2021-02-09 19:42 | disposition left against medical advice (07) ==
LOC: ER 12:40
DX: F29 Unspecified psychosis not due to a substance or known physiological condition (principal); I10 Essential (primary) hypertension; F20.9 Schizophrenia, unspecified; Z79.899 Other long term (current) drug therapy
CPT/HCPCS: 36415; 80053; 80305; 80307; 80320; 80329; 81003; 85025; 99283; G0480

== ENCOUNTER 2021-02-09 21:04 | Emergency (ER) | payer MEDICARE ==
[~2021-02-09] VITALS: Ht 165.1 cm; Wt 70.0 kg
[~2021-02-09 21:04] MED LIST changes: +AMLO5TAB4 MT; +OMEP20CA14 MT; +TRAZ-251 MT
[2021-02-09 23:31] VITALS: BP 115/84
== END 2021-02-09 23:32 | disposition home or self-care (01) ==
LOC: ER 21:04
DX: Z00.00 Encounter for general adult medical examination without abnormal findings (principal); I10 Essential (primary) hypertension; F20.9 Schizophrenia, unspecified; Z79.899 Other long term (current) drug therapy
CPT/HCPCS: 99281